=== PATIENT | female | born 1990 | race Caucasian/White ===

== ENCOUNTER 2016-12-07 10:48 | Emergency (ER) | payer OTHER ==
[~2016-12-07] VITALS: Ht 157.5 cm; Wt 55.0 kg
[~2016-12-07 10:48] MED LIST: LEVO100T84 PO; PRENTAB69 PO
[2016-12-07 11:05] VITALS: TEMP 37.4; Ht 157.5 cm; Wt 55.0 kg
[2016-12-07] MEDS ORDERED: SYN112 PO (11:15)
[2016-12-07] MEDS ORDERED: PARO10TA PO (11:15)
[2016-12-07] MEDS ORDERED: IBUP-1050 PO (11:15)
[2016-12-07] MEDS ORDERED: SODIUM CHLORIDE 0.9% 1000ML 1,000 ML IV STA (12:07)
[2016-12-07] MEDS ORDERED: ONDANSETRON INJ 2 MG/ML 2 ML VIAL IV STA (12:07)
[2016-12-07] MEDS ORDERED: GI COCKTAIL PO STA (12:07)
[2016-12-07] MEDS ORDERED: FAMOTIDINE 20 MG TAB PO STA (12:07)
--- NOTE | 2016-12-07 12:09 | EMERGENCY ROOM VISIT NOTE ---
History Report prepared by Angelito: Woody Escobedo Under the Supervision of: Dr. Zachery Fitzpatrick M.D. First contact with patient: 11:58 Chief Complaint: ABDOMINAL PAIN Stated Complaint: ABD./BACK PAIN Nursing Triage Summary: Pt reports left sided abd pain since Sun. "I threw up two blood clots on Virgie. I wasn't drinking or anything. I suspect I might have a stomach ulcer. I threw up this morning. When I wipe there is blood. I don't know if I have a hemorrhoid." Diarrhea. History of Present Illness The patient is a 26 year old female who presents to the Emergency Room with complaints of intermittent left-sided abdominal pain that started around a month ago. The patient describes the pain as a burning. She says the pain comes and goes every 20 minutes, and eating exacerbates the pain. She has been having a loss of appetite during this time. The patient associates the abdominal pain with back pain, nausea, and vomiting. On , the patient vomited blood. She was not drinking alcohol. Currently, she does not have any pain. The patient does smoke cigarettes. Her past medical history includes heart palpitations. She did have an endoscopy done for her heart. She went to urgent care prior to arrival, and she was told she had some blood in her urine, but that may be from spotting. Her last period was a month or 2 ago, and she was concerned that she started spotting towards the end of the period. Source of History: patient Onset: Around a month ago Position: abdomen (left-sided) Quality: burning Timing: intermittent Modifying Factors (Worsening): eating Associated Symptoms: + back pain, + nausea, + urinary symptoms (blood in urine - but may be from spotting), + vomiting (blood as well) Note: Associated symptoms: loss of appetite. Review of Systems See HPI for pertinent positives & negatives. A total of 10 systems reviewed and were otherwise negative. Past Medical & Surgical Medical Problems: (1) AORTIC VALVE DISORDER (2) TOBACCO USE DISORDER (3) Vaginal delivery Family History No pertinent family history Social History Smoking Status: Current Every Day Smoker Marital Status: single Occupation Status: student Current/Historical Medications Scheduled Famotidine (Pepcid), 40 MG PO HS Ibuprofen (Advil), 200-600 MG PO Q4H Levothyroxine Sodium (Synthroid), 112 MCG PO QAM Paroxetine Hcl (Paxil), 10 MG PO QAM Allergies Coded Allergies: No Known Allergies (Unverified , 12/07/16) Physical Exam Vital Signs Date Time Temp Pulse Resp B/P Pulse Ox O2 Delivery O2 Flow Rate FiO2 12/07/16 14:34 76 16 106/70 99 12/07/16 13:10 78 16 115/72 98 Room Air 12/07/16 11:05 37.4 72 18 120/75 97 Room Air Physical Exam GENERAL: Patient is a healthy-appearing well-nourished HEAD: Normocephalic atraumatic EYES: Ocular movements intact pupils equal and react to light OROPHARYNX mucous membranes are moist no exudates present no erythema or edema present NECK: Supple no nuchal rigidity CHEST: Good equal expansion LUNGS: Clear and equal to auscultation CARDIAC: Normal S1 and S2 ABDOMEN: Soft nontender no guarding BACK: No CVA tenderness EXTREMITIES: No pain upon palpation normal muscle strength in all groups no clubbing cyanosis or edema NEURO: Patient is following commands is answering questions appropriately. Alert and oriented x3 Cranial Nerves 2-12 grossly intact Medical Decision & Procedures ER Provider Diagnostic Interpretation: X-ray results as stated below per interpretation by me and the radiologist: PA CHEST RADIOGRAPH AND UPRIGHT AND SUPINE AP RADIOGRAPHS OF THE ABDOMEN CLINICAL HISTORY: Epigastric pain. COMPARISON STUDY: No previous studies for comparison. FINDINGS: Lung volumes are normal. Lungs are clear. There is no pneumothorax or pleural effusion. There is mild rightward curvature of the lumbar spine. Pelvic calcifications statistically represent phleboliths. The bowel gas pattern is normal. There is no free air. IMPRESSION: 1. No free air or evidence of bowel obstruction. 2. No acute cardiopulmonary findings. 3. Mild S-shaped curvature of the thoracolumbar spine. Electronically signed by: Efren Shaw M.D. 12/07/2016 12:50 PM Dictated Date/Time: 12/07/2016 12:49 PM Laboratory Results 12/07/16 11:42 Red Blood Count 5.18, Mean Corpuscular Volume 85.9, Mean Corpuscular Hemoglobin 30.3, Mean Corpuscular Hemoglobin Concent 35.3, Mean Platelet Volume 10.0, Neutrophils (%) (Auto) 58.4, Lymphocytes (%) (Auto) 32.1, Monocytes (%) (Auto) 7.7, Eosinophils (%) (Auto) 1.3, Basophils (%) (Auto) 0.4, Neutrophils # (Auto) 4.11, Lymphocytes # (Auto) 2.26, Monocytes # (Auto) 0.54, Eosinophils # (Auto) 0.09, Basophils # (Auto) 0.03 12/07/16 11:42 Test 12/07/16 11:42 12/07/16 13:12 White Blood Count 7.04 K/uL (4.8-10.8) Red Blood Count 5.18 M/uL (4.2-5.4) Hemoglobin 15.7 g/dL (12.0-16.0) Hematocrit 44.5 % (37-47) Mean Corpuscular Volume 85.9 fL (80-100) Mean Corpuscular Hemoglobin 30.3 pg (25-34) Mean Corpuscular Hemoglobin Concent 35.3 g/dl (32-36) Platelet Count 228 K/uL (130-400) Mean Platelet Volume 10.0 fL (7.4-10.4) Neutrophils (%) (Auto) 58.4 % Lymphocytes (%) (Auto) 32.1 % Monocytes (%) (Auto) 7.7 % Eosinophils (%) (Auto) 1.3 % Basophils (%) (Auto) 0.4 % Neutrophils # (Auto) 4.11 K/uL (1.4-6.5) Lymphocytes # (Auto) 2.26 K/uL (1.2-3.4) Monocytes # (Auto) 0.54 K/uL (0.11-0.59) Eosinophils # (Auto) 0.09 K/uL (0-0.5) Basophils # (Auto) 0.03 K/uL (0-0.2) RDW Standard Deviation 41.2 fL (36.4-46.3) RDW Coefficient of Variation 13.0 % (11.5-14.5) Immature Granulocyte % (Auto) 0.1 % Immature Granulocyte # (Auto) 0.01 K/uL (0.00-0.02) Anion Gap 9.0 mmol/L (3-11) Est Creatinine Clear Calc Drug Dose 85.4 ml/min Estimated GFR () 119.7 Estimated GFR (Non- 103.3 BUN/Creatinine Ratio 13.8 (10-20) Calcium Level 8.5 mg/dl (8.5-10.1) Total Bilirubin 0.2 mg/dl (0.2-1) Direct Bilirubin < 0.1 mg/dl (0-0.2) Aspartate Amino Transf (AST/SGOT) 15 U/L (15-37) Alanine Aminotransferase (ALT/SGPT) 23 U/L (12-78) Alkaline Phosphatase 83 U/L (45-117) Total Protein 7.3 gm/dl (6.4-8.2) Albumin 3.7 gm/dl (3.4-5.0) Lipase 168 U/L (73-393) Urine Color YELLOW Urine Appearance CLEAR (CLEAR) Urine pH 8.5 (4.5-7.5) Urine Specific [place] 1.022 (1.000-1.030) Urine Protein NEG (NEG) Urine Glucose (UA) NEG (NEG) Urine Ketones NEG (NEG) Urine Occult Blood 2+ (NEG) Urine Nitrite NEG (NEG) Urine Bilirubin NEG (NEG) Urine Urobilinogen NEG (NEG) Urine Leukocyte Esterase NEG (NEG) Urine WBC (Auto) 1-5 /hpf (0-5) Urine RBC (Auto) 0-4 /hpf (0-4) Urine Hyaline Casts (Auto) 1-5 /lpf (0-5) Urine Epithelial Cells (Auto) 20-30 /lpf (0-5) Urine Bacteria (Auto) NEG (NEG) Urine Test NEG (NEG) Labs reviewed by ED physician. Medications Administered Medications (Trade) Dose Ordered Sig/Morgan Route Start Time Stop Time Status Last Admin Dose Admin Famotidine (Pepcid Tab) 20 mg NOW STAT PO 12/07/16 12:07 12/07/16 12:09 DC 12/07/16 12:21 20 MG Sucralfate 1 gm 1 gm NOW ONCE PO 12/07/16 12:15 12/07/16 12:16 DC 12/07/16 12:21 1 GM Sodium Chloride (Nss 1000ml) 1,000 ml @ 999 mls/hr Q1H1M STAT IV 12/07/16 12:07 12/07/16 13:07 DC 12/07/16 12:07 999 MLS/HR Ondansetron HCl (Zofran Inj) 4 mg NOW STAT IV 12/07/16 12:07 12/07/16 12:09 DC 12/07/16 12:21 4 MG Al Hydroxide/Mg Hydroxide (Maalox Susp) 30 ml STK-MED ONCE .ROUTE 12/07/16 13:06 12/07/16 13:07 DC 12/07/16 13:09 30 ML Lidocaine HCl (Viscous Lidocaine 2% Soln) 20 ml STK-MED ONCE .ROUTE 12/07/16 13:06 12/07/16 13:07 DC 12/07/16 13:09 20 ML ED Course 1159: Past medical records reviewed. The patient was evaluated in room B7. A complete history and physical examination was performed. 1207: Ordered Zofran Inj 4 mg IV, NSS 1000 ml @ 999 mls/hr IV, Pepcid Tab 20 mg PO, GI Cocktail 24 ml PO. 1215: Ordered Carafate Tab 1 gm PO. 1323: I reevaluated the patient and she is resting comfortably. She has a soft belly and has no pain. The patient verbally expressed understanding and agreement of the treatment plan. The patient will be discharged. Medical Decision Differential diagnosis: Etiologies such as appendicitis, diverticulitis, PUD, biliary pathology, UTI, pancreatitis, obstruction, mesenteric ischemia, aortic pathology, infections, inflammatory bowel disease, renal colic, as well as others were entertained. This is a 26-year-old female who presents emergency department complaining of a small amount of blood in her vomitus. The patient concerned about ulcers as her father has a history of ulcers and she has been under a large amount of stress lately. Serial abdominal examinations were performed on the patient in the emergency department and at no time did the patient exhibited a surgical abdomen. Based on these findings and using shared medical decision-making as well as a normal CBC normal renal profile normal liver profile normal lipase I felt that further imaging would not contribute much to this patient. I do believe that the patient is suffering from a gastritis or she was given a GI cocktail, Pepcid, Carafate. The patient was also given a normal saline bolus as well as Zofran. Repeat examination revealed improvement in the patient's symptoms. I do believe that the patient is well enough to be discharged home for follow-up with gastroenterology. In the meantime the patient is going to use a clear liquid diet as well as 5 mL some Maalox before every meal and at bedtime. Patient was in agreement with the treatment plan. Impression Primary Impression: Epigastric pain Scribe Attestation The scribe's documentation has been prepared under my direction and personally reviewed by me in its entirety. I confirm that the note above accurately reflects all work, treatment, procedures, and medical decision making performed by me. Departure Information Dispostion Home / Self-Care Prescriptions Famotidine (Pepcid) 40 Mg Tab 40 MG PO HS for 10 Days, #10 TAB Prov: Zachery Fitzpatrick MD 12/07/16 Referrals Drew Maki M.D.([facility]) (PCP) Forms HOME CARE DOCUMENTATION FORM, IMPORTANT VISIT INFORMATION Patient Instructions ED Diet Clear Liquid, ED PUD Vs Gastritis, My [facility] Additional Instructions Take 5 ml Maalox with every meal and at bedtime Clear liquid diet next 48 hours Follow up with Dr Garcia's office You have been examined and treated today on an emergency basis only. This is not a substitute for, or an effort to provide, complete comprehensive medical care. It is impossible to recognize and treat all injuries or illnesses in a single emergency department visit. It is therefore important that you follow up closely with Dr Maki. Call as soon as possible for an appointment. Thank you for your time and consideration. I look forward to speaking with you again soon. Please don't hesitate to call us if you have any questions.
[2016-12-07] MEDS ORDERED: SUCRALFATE 1 GM TAB PO ONE (12:15)
[2016-12-07 12:23] LABS: BASO % 0.4 %; BASO ABS # 0.03 K/uL (0-0.2); COMPLETE YES; EOS % 1.3 %; HEMATOCRIT 44.5 % (37-47); IG% 0.1 %; LYMPH % 32.1 %; LYMPH ABS # 2.26 K/uL (1.2-3.4); MEAN CELL VOLUME 85.9 fL (80-100); MEAN CORPUSCULAR HEMOGLOBIN 30.3 pg (25-34); MEAN CORPUSCULAR HGB CONC 35.3 g/dl (32-36); MONO % 7.7 %; NEUT % 58.4 %; PLATELET COUNT 228 K/uL (130-400); RED BLOOD COUNT 5.18 M/uL (4.2-5.4); WHITE BLOOD COUNT 7.04 K/uL (4.8-10.8)
[2016-12-07 12:25] LABS: ALT/SGPT 23 U/L (12-78); AST/SGOT 15 U/L (15-37); BLOOD UREA NITROGEN 11 mg/dl (7-18); BUN/CREATININE RATIO 13.8 (10-20); CALCIUM 8.5 mg/dl (8.5-10.1); CARBON DIOXIDE 28 mmol/L (21-32); CHLORIDE 105 mmol/L (98-107); CREATININE 0.79 mg/dl (0.60-1.20); GLUCOSE 93 mg/dl (70-99); POTASSIUM 3.5 mmol/L (3.5-5.1); SODIUM 142 mmol/L (136-145)
[2016-12-07 12:28] LABS: ALKALINE PHOSPHATASE 83 U/L (45-117)
--- NOTE | 2016-12-07 12:51 | DIAGNOSTIC IMAGING REPORT ---
PA CHEST RADIOGRAPH AND UPRIGHT AND SUPINE AP RADIOGRAPHS OF THE ABDOMEN CLINICAL HISTORY: Epigastric pain. COMPARISON STUDY: No previous studies for comparison. FINDINGS: Lung volumes are normal. Lungs are clear. There is no pneumothorax or pleural effusion. There is mild rightward curvature of the lumbar spine. Pelvic calcifications statistically represent phleboliths. The bowel gas pattern is normal. There is no free air. IMPRESSION: 1. No free air or evidence of bowel obstruction. 2. No acute cardiopulmonary findings. 3. Mild S-shaped curvature of the thoracolumbar spine. Electronically signed by: Efren Shaw M.D. 12/07/2016 12:50 PM Dictated Date/Time: 12/07/2016 12:49 PM
[2016-12-07] MEDS ORDERED: ALUMINUM/MAGNESIUM SUSP 30 ML UDC ONE (13:06)
[2016-12-07] MEDS ORDERED: LIDOCAINE HCL 2% VISC SOLN 20 ML UDC ONE (13:06)
[2016-12-07] MEDS ORDERED: FAMO40TA6 PO (13:24)
[2016-12-07 13:30] LABS: URINE APPEARANCE CLEAR (CLEAR); URINE BILIRUBIN NEG (NEG); URINE COLOR YELLOW; URINE EPITHELIAL CELL AUTO 20-30 /lpf (0-5); URINE NITRITE NEG (NEG); URINE PH 8.5 (4.5-7.5); URINE SPECIFIC GRAVITY 1.022 (1.000-1.030); UROBILINOGEN NEG (NEG)
[2016-12-07 13:36] LABS: MANUAL MICROSCOPIC REQUIRED? NO; REVIEW REQ? NO; SULFASALICYLIC ACID NEG (NEG)
[2016-12-07 13:42] LABS: PREG INTERNAL NEGATIVE QC NEG CLEAR BACKGROUND; PREG INTERNAL POSITIVE QC POS CONTROL LINE
[2016-12-07 14:34] VITALS: BP 106/70; PULSE 76; O2SAT 99
== END 2016-12-07 14:35 | disposition home or self-care (01) ==
LOC: C.EDB 10:53
DX: R10.13 Epigastric pain (principal); I35.8 Other nonrheumatic aortic valve disorders; F17.200 Nicotine dependence, unspecified, uncomplicated; Z79.899 Other long term (current) drug therapy

== ENCOUNTER 2017-08-08 12:56 | Emergency (ER) | payer OTHER ==
[~2017-08-08] VITALS: Ht 157.5 cm; Wt 55.7 kg
[~2017-08-08 12:56] MED LIST changes: +IBUP-1050 PO; -LEVO100T84 PO; +PARO10TA PO; -PRENTAB69 PO; +SYN112 PO
[2017-08-08 13:05] VITALS: TEMP 36.9; Ht 157.5 cm; Wt 55.7 kg
[2017-08-08] MEDS ORDERED: SODIUM CHLORIDE 0.9% 1000ML 1,000 ML IV STA (13:27)
[2017-08-08] MEDS ORDERED: ONDANSETRON INJ 2 MG/ML 2 ML VIAL IV STA (13:27)
[2017-08-08] MEDS ORDERED: ACETAMINOPHEN IV 650 MG in EMPTY BAG 0 ML IV ONE (13:30)
[2017-08-08 13:45] LABS: BASO % 0.3 %; BASO ABS # 0.02 K/uL (0-0.2); COMPLETE YES; EOS % 0.8 %; HEMATOCRIT 45.9 % (37-47); IG% 0.3 %; MEAN CELL VOLUME 88.3 fL (80-100); MEAN CORPUSCULAR HEMOGLOBIN 30.4 pg (25-34); MEAN CORPUSCULAR HGB CONC 34.4 g/dl (32-36); MEAN PLATELET VOLUME 10.1 fL (7.4-10.4); MONO % 4.5 %; NEUT % 71.1 %; PLATELET COUNT 228 K/uL (130-400); WHITE BLOOD COUNT 7.84 K/uL (4.8-10.8)
[2017-08-08] MEDS ORDERED: OPTIRAY 320 IV PRN (13:45)
[2017-08-08] MEDS ORDERED: BCPILLS PO (14:16)
[2017-08-08] MEDS ORDERED: PARO1TAB27 PO (14:16)
[2017-08-08 14:23] LABS: URINE APPEARANCE CLEAR (CLEAR); URINE BILIRUBIN NEG (NEG); URINE COLOR DK YELLOW; URINE EPITHELIAL CELL AUTO >30 /lpf (0-5); URINE NITRITE NEG (NEG); URINE PH >= 9.0 (4.5-7.5); URINE SPECIFIC GRAVITY 1.028 (1.000-1.030); UROBILINOGEN NEG (NEG)
[2017-08-08 14:26] LABS: ALKALINE PHOSPHATASE 107 U/L (45-117); ALT/SGPT 16 U/L (12-78); BLOOD UREA NITROGEN 12 mg/dl (7-18); BUN/CREATININE RATIO 14.5 (10-20); CALCIUM 9.7 mg/dl (8.5-10.1); CARBON DIOXIDE 24 mmol/L (21-32); CHLORIDE 104 mmol/L (98-107); CREATININE 0.82 mg/dl (0.60-1.20); GLUCOSE 92 mg/dl (70-99); SODIUM 137 mmol/L (136-145)
[2017-08-08 14:31] LABS: MANUAL MICROSCOPIC REQUIRED? NO; REVIEW REQ? NO; SULFASALICYLIC ACID NEG (NEG)
--- NOTE | 2017-08-08 14:37 | DIAGNOSTIC IMAGING REPORT ---
ABDOMEN LIMITED (US) HISTORY: Pain. Nausea. ABDOMINAL PAIN. Right flank pain COMPARISON: None. FINDINGS: The appendix is not identified. IMPRESSION: The appendix is not identified. The above report was generated using voice recognition software. It may contain grammatical, syntax or spelling errors. Electronically signed by: Miguel Crump M.D. 08/08/2017 2:35 PM Dictated Date/Time: 08/08/2017 2:35 PM
--- NOTE | 2017-08-08 17:21 | DIAGNOSTIC IMAGING REPORT ---
ABDOMEN AND PELVIS CT WITH IV AND ORAL CONTRAST CT DOSE: 329.96 mGycm HISTORY: Generalized abdominal pain. TECHNIQUE: Multiaxial CT images of the abdomen and pelvis were performed following the use of intravenous and oral contrast. A dose lowering technique was utilized adhering to the principles of ALARA. COMPARISON STUDY: Abdominal ultrasound 08/08/2017. FINDINGS: The lung bases are clear. Sclerosis and mild erosive change within the bilateral ossicular joints consistent with a sacroiliitis. Focal fat adjacent to the falciform ligament within the liver. No hepatic or splenic masses. The adrenal glands, gallbladder, pancreas, and kidneys are unremarkable. No retroperitoneal lymphadenopathy. Normal appendix. The uterus and ovaries are unremarkable. Bladder wall thickening is likely due to underdistention. Mild thickening of the descending colon consistent with a colitis. The terminal ileum is unremarkable. No evidence for bowel obstruction. IMPRESSION: 1. Mild colitis involving the descending colon. In conjunction with the sacroiliitis this favors an inflammatory bowel disease. Clinical correlation recommended. An infectious colitis could also have a similar appearance. 2. Normal appendix. Electronically signed by: Ignacio Morejon M.D. 08/08/2017 5:20 PM Dictated Date/Time: 08/08/2017 5:02 PM
[2017-08-08] MEDS ORDERED: HYDROmorphone INJ 0.5 MG/0.5 ML SYR IV STA ×2 (18:05→18:08)
[2017-08-08 18:12] VITALS: BP 106/72; PULSE 58; O2SAT 98
--- NOTE | 2017-08-08 22:13 | EMERGENCY ROOM VISIT NOTE ---
ED Visit Note First contact with patient: 13:07 Chief Complaint: I'm having lower abdominal pain. History of Present Illness: Ms. Hannah is a 27year-old white female ambulates into the ED accompanied by female friend complaining of suprapubic abdominal pain. Historically patient denies any significant gastrointestinal disorders or abdominal surgeries. Patient reports a gradual onset of upper pubic abdominal pain that started approximately 11 hours ago. Since that time the pain has been constant but has waxed and waned in intensity. She describes her pain as similar to "bad menstrual cramps". She rates her current discomfort 8/10 The pain is radiating to the abdomen and into the lumbar back. He has not taken any medications for pain prior to arrival at the hospital. The pain worsens with attempts to move her bowels. She has not identified any alleviating factors related to the pain. She has not taken any medications for pain prior to arrival at the hospital. Associated with the pain there has been having chills without domingo fever, nausea with one episode of vomiting, a decreased appetite and this morning she reports she had a small bowel movement of bright red blood and mucus-like material. Patient denies sweats, skin eruptions, skin color changes, upper respiratory tract symptoms, shortness of breath, chest pain, constipation, black/tarry stools, urinary symptoms, hematuria, vaginal bleeding, vaginal discharge. Review of Systems: As noted above in history of present illness. All body systems were reviewed and found to be negative as noted above. Past Medical History: Aortic valve disorder, hypothyroidism. Current Medications: control, Paxil, Synthroid. Allergies to Medications: Patient denies. Social History: Patient is currently employed; she feels safe in her home environment; she admits to tobacco use and denies alcohol use. Physical Examination: Vital Signs: Date Time Temp Pulse Resp B/P (MAP) Pulse Ox O2 Delivery O2 Flow Rate FiO2 08/08/17 18:12 58 18 106/72 98 Room Air 08/08/17 17:51 62 08/08/17 17:14 61 18 110/72 98 Room Air 08/08/17 15:14 62 18 96/50 98 Room Air 08/08/17 14:02 79 08/08/17 13:05 36.9 83 20 124/78 97 Room Air GENERAL: 27-year-old female in mild distress due to pain, nontoxic-appearing, afebrile and hemodynamically stable. NEUROLOGICAL: Awake, alert and oriented to person, place and time. Answering questions appropriately and following commands. Normal gait. Good hand eye coordination. SKIN: Warm, dry and pink. No soft tissue eruptions or trauma noted. HEENT: Atraumatic and normocephalic. PERRL. Sclera white and conjunctiva pink. Oral cavity moist and pink. Pharynx is nonerythematous or edematous. Speech normal. No lymphadenopathy. Trachea midline. No jugular venous distention. BACK: No tenderness over the bony spine. Mild left-sided CVA tenderness. THORAX: Lungs sounds are clear to auscultation and equal bilaterally with symmetrical chest wall. No wheezing, rales or rhonchi. No crepitus, tenderness , subcutaneous air or deformities noted. HEART: Regular rate and rhythm. No gallops, rubs or murmurs are appreciated. ABDOMEN: Flat and soft with mild tenderness just right of the suprapubic area, mild tenderness over McBurney's point and moderate tenderness in the mid right abdomen. Positive bowel sounds in all quadrants. No guarding, rigidity or organomegaly. RECTAL: 3 external hemorrhoids were noted. No active bleeding. Normal rectal tone. No palpable rectal masses. Heme-negative stools. EXTREMITIES: Moves all extremities well on command and with purpose. All distal neurovascular statuses are intact and equal bilaterally. ED Course: Patient is assessed as noted above. Patient's medication list was reviewed. Laboratory Testing: Test 08/08/17 13:30 08/08/17 13:50 Range/Units White Blood Count 7.84 4.8-10.8 K/uL Red Blood Count 5.20 4.2-5.4 M/uL Hemoglobin 15.8 12.0-16.0 g/dL Hematocrit 45.9 37-47 % Mean Corpuscular Volume 88.3 80-100 fL Mean Corpuscular Hemoglobin 30.4 25-34 pg Mean Corpuscular Hemoglobin Concent 34.4 32-36 g/dl Platelet Count 228 130-400 K/uL Mean Platelet Volume 10.1 7.4-10.4 fL Neutrophils (%) (Auto) 71.1 % Lymphocytes (%) (Auto) 23.0 % Monocytes (%) (Auto) 4.5 % Eosinophils (%) (Auto) 0.8 % Basophils (%) (Auto) 0.3 % Neutrophils # (Auto) 5.59 1.4-6.5 K/uL Lymphocytes # (Auto) 1.80 1.2-3.4 K/uL Monocytes # (Auto) 0.35 0.11-0.59 K/uL Eosinophils # (Auto) 0.06 0-0.5 K/uL Basophils # (Auto) 0.02 0-0.2 K/uL RDW Standard Deviation 42.0 36.4-46.3 fL RDW Coefficient of Variation 12.9 11.5-14.5 % Immature Granulocyte % (Auto) 0.3 % Immature Granulocyte # (Auto) 0.02 0.00-0.02 K/uL Sodium Level 137 136-145 mmol/L Potassium Level 3.5-5.1 mmol/L Chloride Level 104 98-107 mmol/L Carbon Dioxide Level 24 21-32 mmol/L Anion Gap 9.0 3-11 mmol/L Blood Urea Nitrogen 12 7-18 mg/dl Creatinine 0.82 0.60-1.20 mg/dl Est Creatinine Clear Calc Drug Dose 81.5 ml/min Estimated GFR () 113.7 Estimated GFR (Non- 98.1 BUN/Creatinine Ratio 14.5 10-20 Random Glucose 92 70-99 mg/dl Calcium Level 9.7 8.5-10.1 mg/dl Total Bilirubin 0.3 0.2-1 mg/dl Direct Bilirubin 0-0.2 mg/dl Aspartate Amino Transf (AST/SGOT) 15-37 U/L Alanine Aminotransferase (ALT/SGPT) 16 12-78 U/L Alkaline Phosphatase 107 45-117 U/L Total Protein 8.3 6.4-8.2 gm/dl Albumin 3.6 3.4-5.0 gm/dl Lipase 97 73-393 U/L Urine Color DK YELLOW Urine Appearance CLEAR CLEAR Urine pH >= 9.0 4.5-7.5 Urine Specific [place] 1.028 1.000-1.030 Urine Protein NEG NEG Urine Glucose (UA) NEG NEG Urine Ketones TRACE NEG Urine Occult Blood NEG NEG Urine Nitrite NEG NEG Urine Bilirubin NEG NEG Urine Urobilinogen NEG NEG Urine Leukocyte Esterase TRACE NEG Urine WBC (Auto) 5-10 0-5 /hpf Urine RBC (Auto) 0-4 0-4 /hpf Urine Hyaline Casts (Auto) 5-10 0-5 /lpf Urine Epithelial Cells (Auto) >30 0-5 /lpf Urine Bacteria (Auto) 1+ NEG Urine Test NEG NEG Urine Culture: Pending Appendix Ultrasound: Was reviewed by myself and read by the radiologist and shows no appendix visible. Contrast Abdominal/Pelvic CT: Was reviewed by myself and read by the radiologist showing mild colitis involving the descending colon in conjunction with sacroiliitis favoring inflammatory bowel disease. Normal-appearing appendix. Patient was hydrated with normal saline and she initially received 4 mg of Zofran IV for nausea and 650 mg of acetaminophen IV. Patient was reassessed multiple times during her stay in the emergency department. Patient's case was reviewed with Dr. Hayden; we agreed on diagnostic approach, treatment, disposition and plan. Patient was educated about today's findings and instructed on her treatment plan ; she verbalizes understanding and agreement with this plan. Clinical Impression: Acute colitis. Decision-Making: Initially my differential diagnosis I considered appendicitis, constipation, colitis, , ectopic , ureter calculus, pyelonephritis and only cystitis and other causes. Disposition: Patient discharged home in stable condition accompanied by her mother; prior to departure she was reassessed and subjectively reported she was feeling better and rated her discomfort 3/10. Plan: Patient was encouraged use 650 mg of acetaminophen every 6 hours and alternated every 3 hours with 600 mg of ibuprofen. Patient is encouraged use a bland diet for the next 48 hours and avoid gastrointestinal irritants. Patient was encouraged to stay well-hydrated with increased clear fluids. Patient is encouraged to follow-up with her PCP and/or gastroenterology for definitive care and treatment. Patient was encouraged return ED for worsening/uncontrolled pain, worsening nausea/vomiting, any additional episodes of bloody stools, fevers or any new/ concerning symptoms.
== END 2017-08-08 18:33 | disposition home or self-care (01) ==
LOC: C.EDB 12:57 → C.EDA 18:33
DX: K52.9 Noninfective gastroenteritis and colitis, unspecified (principal); E03.9 Hypothyroidism, unspecified; I35.8 Other nonrheumatic aortic valve disorders; Z79.3 Long term (current) use of hormonal contraceptives; Z79.899 Other long term (current) drug therapy

== ENCOUNTER 2020-04-07 07:38 | Inpatient (IN) ==
[2020-04-07] MEDS ORDERED: OXYTOCIN 30 UNITS/500 ML BAG IV PRN ×3 (09:31→16:38)
--- NOTE | 2020-04-07 09:38 | History & Physical Report ---
Date of Service April 07, 2020 Assessment & Plan (1) Gestational diabetes mellitus (GDM): 29 yo at 39.4 wks with GDMA2, on insulin VSS Afebrile FS 109 2 hours after meal FHR reassuring GBS negative Plan to admit monitor, pitocin and AROM when able Anticipate History of Present Illness Primary Care Provider: Drew Maki MD Patient is a 29yo at 39.4 wks who is scheduled for IOL for GDMA2 at term No complaints Irregular ctxs No LOF/VB +FM's GBS negative Her has been complicated by: 1) GDMA2 on 10 u of insulin / day 2) Hypothyroidism 3) Smoker 4) Anxiety" on Hydroxyzine as needed Allergies Allergy/AdvReac Type Severity Reaction Status Date / Time nickel Allergy Rash Verified 04/07/20 07:50 Home Medications Home Medications Medication Instructions Recorded Confirmed Type levothyroxine 150 mcg PO QAM 05/22/19 04/07/20 History prenat.vits,kristen,[id number] 1 tab PO DAILY #30 tab 08/07/19 04/07/20 Rx insulin glargine [Lantus U-100 10 unit SUBCUT HS 04/07/20 04/07/20 History Insulin] Patient History Medical History Acute anxiety (Inactive) Anxiety (Acute) Hypophosphatemia (Inactive) Hypothyroidism PTSD (post-traumatic stress disorder) Ulcerative colitis UTI (urinary tract infection) (Inactive) Surgical History No pertinent past surgical history Family History Grandmother Coronary heart disease Diabetes Grandfather Hypertension Social History Preferred Language: Surinamese Communication Ability: Effective Visual Impairment: No Limitations Hearing Ability: Normal Hogshead Liner Required: No Beliefs That Will Affect Care: None marital status: Single Current Living Situation: Significant Other current occupational status: unemployed Other Information That Helps Us Care for You: No Feels Safe at Home: Yes Safety Concerns: Feels Safe At This Time Smoking Status: Current every day smoker Tobacco Type: cigarettes ; packs per day: 0.5 ; Cigarettes Per Day: 20-30 ; Do You Dip or Chew Tobacco: No ; Second Hand Exposure: No ; Tobacco Cessation Education Requested by Patient: No Hx Alcohol Use: No Hx Substance Use: No OB History 2 FT , 5 and 7 yo [employer] History No h/o STD's, no HSV Review of Systems All systems reviewed & are unremarkable except as noted in HPI & below Physical Exam Constitutional: WD/WN, vitals as above well developed and well nourished Comfortable Gastrointestinal (Abdomen): normal bowel sounds, soft, nontender, no hepatosplenomegaly (Gravid, [place] 7-8 lb) Genitourinary: normal external appearance OB Exam Abdomen: + vertex and + irregular contractions Manual OB Exam: + cervical dilation 4 cm, + cervical effacement 60% and + station -2 OB Exam Monitor Tracing: + external FHT monitor used, + category I and + normal FHT variability Results & Data Vital Signs (Past 12 Hours) Vital Signs Temp Pulse Resp BP 04/07/20 08:17 96 H 124/74 04/07/20 07:47 36.9 C 113 H 20 137/88
[2020-04-07] MEDS: LACTATED RINGER'S 1,000 ML IV PRN ×2 (09:50→14:56)
[2020-04-07 09:52] LABS: Hematocrit (blood only) 35.7 % (37-47); Hemoglobin 12.2 g/dL (12.0-16.0); Mean Corpuscular Volume 90.8 fL (80-100); Mean Platelet Volume 10.9 fL (7.4-10.4); Platelet Count 157 K/uL (130-400); RDW Coefficient of Variation 15.2 % (11.5-14.5); RDW Standard Deviation 50.5 fL (36.4-46.3); Red Blood Count 3.93 M/uL (4.2-5.4); White Blood Count 9.29 K/uL (4.8-10.8)
[2020-04-07 09:57] LABS: Mean Corpuscular Hgb Conc 34.2 g/dL (32-36)
[2020-04-07 10:11] LABS: Albumin Level 2.3 gm/dl (3.4-5.0); BUN Creatinine Ratio 12.6 (10-20); Calcium 9.5 mg/dl (8.5-10.1); Creatinine Clr Calc Pharmacy 133.2 ml/min; Est GFR (African American) 139.8; Est GFR (Non-African American) 120.6
[2020-04-07 10:14] LABS: Albumin Globulin Ratio 0.6 (0.9-2); Bilirubin,Total 0.2 mg/dl (0.2-1); Globulin 4.1 gm/dl (2.5-4.0); Total Protein 6.4 gm/dl (6.4-8.2)
[2020-04-07] MEDS ORDERED: BUTORPHANOL TARTRATE 1 MG/ML VIAL IV PRN (10:30)
[2020-04-07] MEDS ORDERED: ePHEDrine sulfate 50 MG/ML AMP ONE (14:41)
[2020-04-07] MEDS ORDERED: BUPIVACAINE 0.25% 30 ML VIAL ONE (14:41)
[2020-04-07] MEDS ORDERED: fentaNYL citrate 100 MCG/2 ML VIAL ONE (14:41)
[2020-04-07] MEDS ORDERED: fentaNYL 2MCG/ML ROPIV 1.25MG/ML 100 ML BAG EPI ONE (14:42)
--- NOTE | 2020-04-07 14:51 | Anesthesiology Consultation ---
Date of Service April 07, 2020 Assessment & Plan ASA ASA3 Proposed Anesthesia Anesthesia Type: Labor Epidural Risk / Benefits Reviewed With: PT / POA / Parent / Guardian, Accepts Plan and Informed Consent Obtained History Height/Weight Height: 5 ft 2 in Weight: 87.543 kg Allergies Allergy/AdvReac Type Severity Reaction Status Date / Time nickel Allergy Rash Verified 04/07/20 07:50 Medications Home Medications Medication Instructions Recorded Confirmed Last Taken levothyroxine 150 mcg PO QAM 05/22/19 04/07/20 04/07/20 06:30 prenat.vits,kristen,esu-ekmz-ygcep 1 tab PO DAILY #30 tab 08/07/19 04/07/20 04/07/20 06:30 insulin glargine [Lantus U-100 10 unit SUBCUT HS 04/07/20 04/07/20 04/06/20 23:00 Insulin] Active Medications Generic Name Dose Route Start Last Admin Trade Name Freq PRN Reason Stop Dose Admin Butorphanol Tartrate 1 mg 04/07/20 10:30 04/07/20 11:35 Stadol IV 05/07/20 10:29 1 mg Q3HWA PRN Administration Pain Oxytocin 30 units in 500 mls @ 16 mls/hr 04/07/20 09:31 04/07/20 14:00 Pitocin IV 04/09/20 09:30 0.96 units/hr .Q24H PRN 16 mls/hr Labor Induction/Augmentation Titration Protocol 0.96 UNITS/HR Lactated Ringer's 1,000 mls @ 150 mls/hr 04/07/20 09:31 04/07/20 15:17 Lr IV 04/09/20 09:30 150 mls/hr .Q6H40M PRN Infusion L&D Protocol Protocol Past Medical History Medical History Acute anxiety (Inactive) Anxiety (Acute) Hypophosphatemia (Inactive) Hypothyroidism PTSD (post-traumatic stress disorder) Ulcerative colitis UTI (urinary tract infection) (Inactive) Exercise / Class Metabolic Activity II 4-5 Yardwork/Stairs/Walk up hill Past Family History Family History Grandmother Coronary heart disease Diabetes Grandfather Hypertension Past Surgical History Surgical History No pertinent past surgical history Past Anesthesia History No Hx of Anesthesia Complications and No Family Hx of Anesthesia Complications History of PONV No Hx of PONV and No Hx of Motion Sickness Social History Smoking Status: Current every day smoker tobacco type: cigarettes Smoking cigarettes per day: 20-30 Do You Dip or Chew Tobacco: No Hx Alcohol Use: No Hx Substance Use: No substance use type: marijuana Substance Use Type Other:: Medical marijuana use (March 2019) daily - ~2 joints per day Last Used Substance: Unknown Review of Systems denies fever/cough/ colds/ chest pain/ SOB/ RUBINA Constitutional: no fever and no chills Respiratory: no cough and no dyspnea denies RUBINA Cardiovascular: no chest pain and no dyspnea on exertion Physical Exam Vital Signs Last Vital Signs Temp 36.9 C 04/07/20 15:14 Pulse 108 H 04/07/20 15:24 Resp 18 04/07/20 15:20 BP 111/60 04/07/20 15:24 Pulse Ox 95 04/07/20 15:23 ENMT Mouth: no TMJ abnormality and no dentition abnormality Thyromental Distance: > or= 3.5 Finger Breadths Mallampati Class: II Neck neck extension not limited Respiratory normal respiratory effort; no respiratory distress Auscultation: lungs clear to auscultation bilaterally Cardiovascular Rate/Rhythm: regular rate and regular rhythm Neurologic moves all extremities Psychiatric Orientation: alert and oriented x 3 Testing Laboratory Results 04/07/20 09:38 04/07/20 09:38 Blood Type A Negative 04/07/20 09:38 Antibody Screen NEGATIVE 04/07/20 09:38 04/07/20 04/07/20 04/07/20 14:59 11:58 08:36 POC Glucose 82 85 109 H
[2020-04-07] MEDS ORDERED: ePHEDrine sulfate 50 MG/ML AMP IV PRN (15:28)
[2020-04-07] MEDS ORDERED: NALOXONE HCL 0.4 MG/1 ML VIAL/CARP IV PRN (15:28)
[2020-04-07] MEDS ORDERED: fentaNYL 2MCG/ML ROPIV 1.25MG/ML 100 ML BAG EPI PRN (15:28)
[2020-04-07] MEDS ORDERED: PROMETHAZINE HCL 25 MG in SODIUM CHLORIDE 0.9% 50 ML IV PRN (15:28)
[2020-04-07] MEDS ORDERED: DiphenhydrAMINE HCL 50 MG/ML VIAL IV PRN (15:28)
[2020-04-07] MEDS ORDERED: NALOXONE HCL 1 MG in SODIUM CHLORIDE 0.9% 1000ML 1,000 ML IV PRN (15:28)
[2020-04-07] MEDS ORDERED: ONDANSETRON INJ 2 MG/ML 2 ML VIAL IV PRN (15:28)
[2020-04-07] MEDS ORDERED: NALBUPHINE HCL INJ 10 MG/ML AMP IV PRN (15:28)
--- NOTE | 2020-04-07 15:37 | Obstetrical Progress Note ---
Date of Service April 07, 2020 Assessment & Plan Admission and Anticipated Discharge Date Admission Date: April 07, 2020 Subjective Patient received epidural and comfortable now VE: 9/ 90%/large bulging bag, AROM'ed clear fluid, head at 0 station FHR categ I Continue to monitor closely Anticipate Results & Data ([facility]) Vital Signs (Past 12 Hours) Vital Signs Temp Pulse Resp BP Pulse Ox 04/07/20 15:33 103 H 96 04/07/20 15:30 98 H 118/60 04/07/20 15:28 83 114/60 94 04/07/20 15:26 83 122/64 04/07/20 15:24 108 H 111/60 04/07/20 15:23 101 H 95 04/07/20 15:22 96 H 115/59 L 04/07/20 15:20 90 18 135/75 04/07/20 15:18 88 136/71 96 04/07/20 15:16 84 128/71 04/07/20 15:14 36.9 C 89 20 137/81 04/07/20 15:13 91 H 95 04/07/20 15:12 103 H 137/78 04/07/20 15:10 98 H 137/76 04/07/20 15:08 100 H 141/87 H 95 04/07/20 15:03 117 H 94 04/07/20 14:58 102 H 95 04/07/20 14:57 101 H 94 04/07/20 14:52 91 H 96 04/07/20 14:51 92 H 128/81 04/07/20 13:53 77 115/63 04/07/20 12:51 70 125/69 04/07/20 12:30 18 04/07/20 11:52 76 118/63 04/07/20 10:51 37.0 C 82 20 119/67 04/07/20 09:50 80 122/76 04/07/20 08:17 96 H 124/74 04/07/20 07:47 36.9 C 113 H 20 137/88
[2020-04-07] MEDS ORDERED: BENZOCAINE 20% AER SPR 82.5 GM CAN EXT PRN (16:38)
[2020-04-07] MEDS ORDERED: DIPHTHERIA/TETANUS/PERTUSSIS 0.5 ML SYR/VIAL IM ONE (16:38)
[2020-04-07] MEDS ORDERED: SUPERCREAM 0.870% 15 GM JAR EXT PRN (16:38)
[2020-04-07] MEDS ORDERED: HYDROCORTISONE ACETATE 25 MG SUPP PR PRN (16:38)
[2020-04-07] MEDS ORDERED: MEASLES, MUMPS & RUBELLA VIRUS VIAL SQ ONE (16:38)
[2020-04-07] MEDS ORDERED: bisacodyL 10 MG SUPP PR PRN (16:38)
--- NOTE | 2020-04-07 17:01 | Delivery Summary ---
DATE OF OPERATION: 04/07/2020 TIME: 4:15 p.m. DETAILS OF DELIVERY: The patient was found to be fully dilated and desired to push. She pushed about 20 minutes and delivered the head without difficulty in direct occiput posterior position. Baby was facing up with a loose nuchal cord around the neck x1, which was reduced easily and shoulders came right after the head. Baby was handed off to the mother where mouth and nose were suctioned. Cord was clamped x2 and cut at 1 minute delay. Cord blood was obtained. Vagina and perineum were checked for lacerations and there was no laceration found, they were intact. Placenta was found to be in the vagina, delivered spontaneously intact and complete. Uterus was explored and found to be empty. Lower segment was cleared of all clots and debris. EBL was 100 mL. Fundus was firm. No complications happened. Baby was a viable male infant, Apgars 8/9 and 2963 grams Sponge, and instrument counts were correct x2 I was present during the whole procedure. I attest to the content of the Intraoperative Record and any orders documented therein. Any exceptions are noted below. MTDD
--- NOTE | 2020-04-07 17:08 | Anesthesiology Progress Note ---
Date of Service April 07, 2020 Anesthesia Post Procedure Vital Signs Vital Signs: Temp Pulse Resp BP Pulse Ox 04/07/20 16:53 90 20 117/72 04/07/20 16:39 96 H 118/64 04/07/20 16:38 20 04/07/20 16:28 104 H 96 04/07/20 16:23 101 H 20 112/63 95 04/07/20 16:18 118 H 96 04/07/20 16:13 99 H 97 04/07/20 16:08 99 H 97 04/07/20 16:03 89 99 04/07/20 16:00 103 H 100/63 04/07/20 15:58 117 H 99 04/07/20 15:53 126 H 98 04/07/20 15:48 104 H 96 04/07/20 15:47 96 H 108/62 04/07/20 15:43 83 95 04/07/20 15:38 91 H 95 04/07/20 15:33 103 H 96 04/07/20 15:30 98 H 118/60 04/07/20 15:28 83 114/60 94 04/07/20 15:26 83 122/64 04/07/20 15:24 108 H 111/60 04/07/20 15:23 101 H 95 04/07/20 15:22 96 H 115/59 L 04/07/20 15:20 90 18 135/75 04/07/20 15:18 88 136/71 96 04/07/20 15:16 84 128/71 04/07/20 15:14 36.9 C 89 20 137/81 04/07/20 15:13 91 H 95 04/07/20 15:12 103 H 137/78 04/07/20 15:10 98 H 137/76 04/07/20 15:08 100 H 141/87 H 95 04/07/20 15:03 117 H 94 04/07/20 14:58 102 H 95 04/07/20 14:57 101 H 94 04/07/20 14:52 91 H 96 04/07/20 14:51 92 H 128/81 04/07/20 13:53 77 115/63 04/07/20 12:51 70 125/69 04/07/20 12:30 18 04/07/20 11:52 76 118/63 04/07/20 10:51 37.0 C 82 20 119/67 04/07/20 09:50 80 122/76 04/07/20 08:17 96 H 124/74 04/07/20 07:47 36.9 C 113 H 20 137/88 Transfer of Care Handoff Completed per policy Notes Mental Status: alert / awake / arousable and participated in evaluation Patient Amnestic to Procedure: Yes Nausea / Vomiting: adequately controlled Pain: adequately controlled Airway Patency, RR, SpO2: stable & adequate BP & HR: stable & adequate Hydration State: stable & adequate Anesthetic Complications: no major complications apparent and Pt Satisfied with anesthetic care
[2020-04-07] MEDS: DOCUSATE SODIUM 100 MG CAP PO SCH (20:50)
[2020-04-07] MEDS: IBUPROFEN 600 MG TAB PO PRN (22:17)
[2020-04-08] MEDS: ACETAMINOPHEN 325 MG TAB PO PRN ×2 (01:06→07:58)
[2020-04-08] MEDS ORDERED: LEVOTHYROXINE SODIUM 150 MCG TABLET PO SCH (06:30)
[2020-04-08 06:34] LABS: Hematocrit (blood only) 33.9 % (37-47); Hemoglobin 11.2 g/dL (12.0-16.0); Mean Corpuscular Hemoglobin 30.2 pg (25-34); Mean Corpuscular Volume 91.4 fL (80-100); Mean Platelet Volume 10.9 fL (7.4-10.4); Platelet Count 148 K/uL (130-400); RDW Coefficient of Variation 15.2 % (11.5-14.5); RDW Standard Deviation 50.6 fL (36.4-46.3); Red Blood Count 3.71 M/uL (4.2-5.4); White Blood Count 9.98 K/uL (4.8-10.8)
[2020-04-08] MEDS: DOCUSATE SODIUM 100 MG CAP PO SCH (07:28)
[2020-04-08] MEDS ORDERED: FERROUS SULFATE 325 MG TAB PO SCH (08:00)
[2020-04-08] MEDS ORDERED: PRENATAL VITAMIN 1 TAB PO SCH (08:00)
--- NOTE | 2020-04-08 10:06 | Obstetrical Progress Note ---
Date of Service April 08, 2020 Assessment & Plan Admission and Anticipated Discharge Date Admission Date: April 07, 2020 Subjective doing well Physical Exam Constitutional: WD/WN, vitals as above comfortable Genitourinary: abdomen soft non-tender neg Howard's for d/c Results & Data ([facility]) Vital Signs (Past 12 Hours) Vital Signs Temp Pulse Pulse Resp BP BP Pulse Ox 04/08/20 09:25 36.7 C 89 16 119/79 97 04/08/20 09:16 36.7 C 89 16 119/79 97 04/08/20 08:00 36.7 C 87 20 127/90 98 04/08/20 04:20 36.5 C 92 H 16 113/74 96 04/07/20 23:25 36.7 C 92 H 16 113/74 96 Laboratory Results Laboratory Results - last 72 hr 04/07/20 04/07/20 04/07/20 08:36 09:38 09:38 WBC 9.29 RBC 3.93 L Hgb 12.2 Hct 35.7 L MCV 90.8 MCH 31.0 MCHC 34.2 RDW Std Deviation 50.5 H RDW Coeff of Ronda 15.2 H Plt Count 157 MPV 10.9 H Sodium Potassium Chloride Carbon Dioxide Anion Gap BUN Creatinine Est Cr Clr Drug Dosing Est GFR ( Amer) Est GFR (Non-Af Amer) BUN/Creatinine Ratio Glucose POC Glucose 109 H Calcium Total Bilirubin AST ALT Alkaline Phosphatase Total Protein Albumin Globulin Albumin/Globulin Ratio Blood Type A Negative Antibody Screen NEGATIVE Screen 04/07/20 04/07/20 04/07/20 09:38 11:58 14:59 WBC RBC Hgb Hct MCV MCH MCHC RDW Std Deviation RDW Coeff of Ronda Plt Count MPV Sodium 137 Potassium 4.0 Chloride 106 Carbon Dioxide 25 Anion Gap 6.0 BUN 8 Creatinine 0.64 Est Cr Clr Drug Dosing 133.2 Est GFR ( Amer) 139.8 Est GFR (Non-Af Amer) 120.6 BUN/Creatinine Ratio 12.6 Glucose 98 POC Glucose 85 82 Calcium 9.5 Total Bilirubin 0.2 AST 15 ALT 15 Alkaline Phosphatase 192 H Total Protein 6.4 Albumin 2.3 L Globulin 4.1 H Albumin/Globulin Ratio 0.6 L Blood Type Antibody Screen Screen 04/08/20 04/08/20 06:06 06:06 WBC 9.98 RBC 3.71 L Hgb 11.2 L Hct 33.9 L MCV 91.4 MCH 30.2 MCHC 33.0 RDW Std Deviation 50.6 H RDW Coeff of Ronda 15.2 H Plt Count 148 MPV 10.9 H Sodium Potassium Chloride Carbon Dioxide Anion Gap BUN Creatinine Est Cr Clr Drug Dosing Est GFR ( Amer) Est GFR (Non-Af Amer) BUN/Creatinine Ratio Glucose POC Glucose Calcium Total Bilirubin AST ALT Alkaline Phosphatase Total Protein Albumin Globulin Albumin/Globulin Ratio Blood Type A Negative Antibody Screen Cancelled Screen Negative
[2020-04-08] MEDS: IBUPROFEN 600 MG TAB PO PRN (12:16)
[2020-04-08] MEDS ORDERED: bisacodyL 5 MG TABEC PO SCH (20:00)
== END 2020-04-08 17:05 | disposition home or self-care (01) | DRG 807 ==
LOC: 4S1 07:38 → 4S2 20:05
DX: Z79.899 Other long term (current) drug therapy; Z37.0 Single live birth; O24.424 Gestational diabetes mellitus in childbirth, insulin controlled; E03.9 Hypothyroidism, unspecified; F17.210 Nicotine dependence, cigarettes, uncomplicated; Z83.3 Family history of diabetes mellitus; O99.334 Smoking (tobacco) complicating childbirth; O99.284 Endocrine, nutritional and metabolic diseases complicating childbirth; O69.81X0 Labor and delivery complicated by cord around neck, without compression, not applicable or unspecified; Z91.048 Other nonmedicinal substance allergy status; Z79.890 Hormone replacement therapy